=== PATIENT | male | born 1990 | race American Indian/Alaskan Native ===

== ENCOUNTER 2021-02-14 18:36 | Emergency (ER) | payer SELFPAY ==
[2021-02-14] MEDS ORDERED: IBUPROFEN 800 MG TAB PO ONE (18:45)
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
[2021-02-14 20:19] VITALS: BP 102/62
== END 2021-02-14 21:00 | disposition home or self-care (01) ==
LOC: ED 18:36
DX: S69.91XA Unspecified injury of right wrist, hand and finger(s), initial encounter (principal); V89.2XXA Person injured in unspecified motor-vehicle accident, traffic, initial encounter; Y93.89 Activity, other specified; Y92.488 Other paved roadways as the place of occurrence of the external cause; Y99.8 Other external cause status
CPT/HCPCS: 99284